=== PATIENT | male | born 1955 | race Native Hawaiian/Other Pacific Islander ===

== ENCOUNTER → 2020-10-22 09:36 | Outpatient (CLI) | payer MEDICARE, OTHER, SELFPAY ==
[2020-10-22 11:18] LABS: COVID19 -Nasal RAPID Negative (Negative)
== END ==
PROVIDERS: Family Provider Family Medicine; PCP Family Medicine; Visit Provider Surgery
DX: Z20.822 Contact with and (suspected) exposure to COVID-19 (principal)
CPT/HCPCS: 87635; C9803

== ENCOUNTER 2020-10-23 08:51 | Day surgery (SDC) | payer MEDICARE, OTHER, SELFPAY ==
--- NOTE | 2020-10-23 | PATH_ITS ---
[facility] Accession Number: [id number] . 01 Material submitted: . colon - 110 CM COLON POLYP . 01 Clinical history: . SDC . 02 Diagnosis: 110 cm Colon Polyp: Portion of tubular adenoma x 1. Superficial portions of colorectal mucosa x 3 with patchy hyperplastic mucosal change. MRV 10/26/2020 1031 Local . 02 Electronically signed: . Christina Lubin MD, Pathologist NPI- [id number] . 01 Gross description: . The specimen is received in formalin, labeled 110 cm colon polyp and consists of four fabian-pink fragments of soft tissue measuring 0.7 x 0.6 x 0.2 cm in aggregate. The specimen is entirely submitted in cassette A1. ([id number]) /MRV 10/24/2020 1147 Local . 02 Pathologist provided ICD-10: K63.5, Z12.11, Z86.010 . 02 CPT . 797611 Performed at: 01 [facility] [address] [place], [place], [place] [id number] MD Anup Melendez MD Phone: [phone] Performed at: 02 [facility] [address] [place], [place] [id number] MD Regine Edwards MD Phone: [phone]
[2020-10-23 09:26] VITALS: BP 135/86; PULSE 75; RESP 20; TEMP 36.9; O2SAT 98; BMI 36.3
[2020-10-23] MEDS: SODIUM CHLORIDE 0.9% 1,000 ML 200 ML IV (09:46)
--- NOTE | 2020-10-23 10:13 | PM.HP.1 ---
History of Present Illness History of Present Illness Date Patient Seen: 10/23/20 Time Patient Seen: 10:13 Chief complaint: SD Narrative: This is a 64-year-old man with history of polyps found on a colonoscopy 5 years ago. He denies any new symptoms of melena, hematochezia, unexplained abdominal pain, unexplained weight loss. He is here for surveillance colonoscopy. He has had radiation for prostate cancer. He reports some symptoms of anal leakage, and hemorrhoid. He reports some low-grade constipation and has to sit on the toilet for more than 5 minutes to have a bowel movement. He does not use a fiber supplement, or any barrier cream. ROS Thirteen system review is otherwise negative other than as mentioned below and in HPI. PE: GENERAL: Well groomed and cooperative. Appears stated age. Answers questions promptly and appropriately. Vital signs noted. HENT: Normocephalic, atraumatic. Hearing intact. EYES: Conjunctiva pink, sclera white, no periorbital swelling. CARDIOVASCULAR: Regular rate. No pedal edema. RESPIRATORY: Non-tachypneic, breathing comfortably on room air. GASTROINTESTINAL: Abdomen soft and non-distended GENITALURINARY: No flank tenderness. MUSCULOSKELETAL: Equal tone and mass bilaterally. SKIN: Warm, dry, soft, appropriate color for ethnicity. No other lesions, rashes, or wounds. NEURO: Alert and Oriented X 3. No gross sensory deficits, or cognitive issues. PSYCH: Appropriate affect and mood. Patient History Family & Social History Social History: household members spouse Tobacco & Substance use: Smoking Status Never smoker alcohol intake current alcohol intake frequency 3 or more drinks per day Substance Use Type does not use Meds Home Medications and Allergies Home Medications Medication Instructions Recorded Confirmed Type amlodipine-benazepril [Lotrel] 1 cap PO QDAY #0 11/03/17 10/23/20 History aspirin 81 mg PO QDAY #0 11/03/17 10/23/20 History hydrochlorothiazide 12.5 mg PO QDAY #0 11/03/17 10/23/20 History simvastatin 40 mg PO QDAY #0 11/03/17 10/23/20 History sodium,potassium,mag sulfates 17.5 177 ml PO DAILY #354 ml 10/04/20 10/23/20 Rx gram-3.13 gram-1.6 gram oral soln Allergies Allergy/AdvReac Type Severity Reaction Status Date / Time No Known Drug Allergies Allergy Verified 10/23/20 09:23 Exam Vital Signs (past 8 hours): - 10/23/20 09:26 Temperature 98.5 F Pulse Rate 75 Respiratory Rate 20 Blood Pressure 135/86 Pulse Oximetry 98 Oxygen Delivery Method Room Air Assessment & Plan Assessment and plan (1) Constipation: Qualifiers: Constipation type: unspecified constipation type Qualified Code(s): K59.00 - Constipation, unspecified Status: Acute (2) Hemorrhoids: Qualifiers: Hemorrhoid type: unspecified Qualified Code(s): K64.9 - Unspecified hemorrhoids Status: Acute (3) Personal history of colonic polyps: Status: Acute (4) Prostate cancer: Status: Acute (5) History of radiation therapy: Status: Acute Assessment & Plan narrative: Risks and benefits of screening colonoscopy and possible polypectomy were discussed with the patient including risk of bleeding, perforation, need for additional procedures, risks of anesthesia. The patient desires to proceed with the colonoscopy procedure. COVID-19 COVID-19 status: Negative Result date/Date tested (Pos, Neg/Pending): 10/22/20 Time Spent With Patient Time with patient: 15-24 minutes Quality VTE Deep Vein Thrombosis/Pulmonary Embolism Present on Admission: No
[2020-10-23] MEDS: MIDAZOLAM 5 MG/5 ML VIAL IV (10:19)
[2020-10-23] MEDS: fentaNYL 250 MCG/5 ML INJ IV (10:19)
--- NOTE | 2020-10-23 10:19 | PM.OP.ENDO ---
Operative Date/Time/Diagnoses Date of procedure: 10/23/20 Time of procedure: 10:19 Pre-op diagnosis: Personal history of colon polyps Post-op diagnosis: other (Large external hemorrhoids, single adenomatous appearing polyp at 110 cm) Procedure & Clinicians Study performed: Colonoscopy Procedural sedation performed by the endoscopist Polypectomy with Jumbo forceps Same procedure as scheduled: Yes Indications: Personal history of colon polyps Due for surveillance colonoscopy Surgeon: Sultana Matos Procedure Notes SCOAP/Timeout: Performed Procedure in detail: The patient was brought to the room and placed in left lateral decubitus position with all bony prominences padded. A time-out was performed and then the patient was given procedural sedation starting with 4 mg of Versed an100] mcg of fentanyl. Vitals were monitored throughout the procedure and remained stable. Once adequately sedated, the procedure was begun. A rectal exam was performed revealing large external hemorrhoids, otherwise normal. The colonoscope was then introduced to the rectum and advanced to the cecum in the usual fashion. [The cecum was identified by the appendiceal orifice, the mucosal tri-fold, and the ileocecal valve. The scope was then retracted while rotating side to side and examining each mucosal fold. A single polyp with transit 110 cm in the colon, and removed with Jumbo forceps.] At the conclusion of the procedure retroflexion was performed and [small grade 1-2 internal hemorrhoids without stigmata of bleeding were seen. The scope was then withdrawn from the rectum the procedure was concluded. The patient tolerated the procedure well and was transferred to the PACU in stable condition. Scope withdrawal time: 10 Findings: polyp and other findings (Large external hemorrhoid) Specimen(s): other (Single adenomatous polyp) Complications: none Impression: Large external hemorrhoids, single benign-appearing polyp Post-procedure Recommendations: Other recommendation (Colonoscopy in 5-10 years depending on pathology results, will contact patient with biopsy results) Plan for aftercare: Follow-up as needed for help with hemorrhoid symptoms, anal leakage, constipation Follow up: as needed Disposition: PACU
[2020-10-23 10:42] VITALS: BP 124/80; PULSE 73; RESP 11; TEMP 36.4; O2SAT 95
[2020-10-23 10:47] VITALS: BP 120/68; PULSE 71; RESP 11; O2SAT 94
[2020-10-23 10:52] VITALS: BP 122/70; PULSE 69; RESP 11; O2SAT 94
[2020-10-23 11:03] VITALS: BP 115/58; PULSE 67; RESP 17; TEMP 36.4; O2SAT 95
[2020-10-23 11:20] VITALS: BP 121/71; PULSE 80; RESP 16; TEMP 37.1; O2SAT 99
--- NOTE | 2020-10-23 14:51 | SUR.PHASEII ---
Stable phase 2, left when ready, ride called left unit in stable condition, belly soft and no pain or nausea.
== END 2020-10-23 11:30 | disposition home or self-care (01) ==
PROVIDERS: Family Provider Family Medicine; PCP Physician Assistant Medical; Referring Provider Physician Assistant Medical; Visit Provider Surgery
PROC: 0DJD8ZZ Inspection of Lower Intestinal Tract, Via Natural or Artificial Opening Endoscopic (ICD-10-PCS; CPT 45378; principal; 2020-10-23 10:00)
DX: Z12.11 Encounter for screening for malignant neoplasm of colon (principal); Z86.010 Personal history of colon polyps; K64.0 First degree hemorrhoids; K64.4 Residual hemorrhoidal skin tags; D12.6 Benign neoplasm of colon, unspecified
CPT/HCPCS: 45380; J2250; J3010

== ENCOUNTER 2021-09-02 07:30 | Outpatient (RCR) | payer MEDICARE, OTHER, SELFPAY ==
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
--- NOTE | 2021-06-12 15:53 | PT.OPPOC ---
Physical, Occupational & Speech Therapy At [facility] Current Diagnoses Pain in right knee (06/12/21) Visit Care Team Role Provider Type Yesica Winslow PA-C Attending Provider Non-Staff Family Provider Primary Care Provider Referring Provider Specialty: Medical Address: [facility] [address], [place], [address] Email: Plan Of Care PT-OP-T Assessment and Plan Start: 06/11/21 15:41 Freq: Status: Active Protocol: Document 06/12/21 10:30 MB (Rec: 06/12/21 15:52 MB [id number]) Physical Therapy Assessment Rehab Potential Rehabilitation Potential Fair Evaluation Complexity Number of Personal Factors/Comorbidities 1-2 Number of Body Systems Impaired 1-2 Clinical Presentation at Evaluation Evolving Impairments Impairments Activity Tolerance,Balance, Edema,Functional Mobility,Gait ,Integument,Pain,Posture,ROM, Sensation,Soft Tissue Mobility ,Strength,Transfers Other Impairments Personal factors include increased body mass and progressive degenerative disease. Body systems affected include neuromuscular and musculoskeletal. His clinical presentation is evolving. Other Concerns Fall Risk Yes Age Related Concerns Pt reports history of falling with most recent fall less than a week before evaluation- -he was on a pallet and couldn 't bend his knees enough to dismount safely Goals 4 Spiral Runner Goal (LTG) Pt will perform progressive HEP with I including ROM, flexibility, balance, strengthening and gait to decrease pain and improve mobility by 08/12/21. LTG Duration 8 weeks 3 Group Home Goal (LTG) Pt will gait train at least 1400 feet in 6 minutes without AD to improve community ambulation by 08/12/21. LTG Duration 8 weeks 2 Spiral Runner Goal (LTG) Pt will perform at least 11 reps of sit to dry wall installer 30 sec without UE support to improve functional range of motion and transfers by 08/12/21. LTG Duration 8 weeks 1 Impairment LEF score reflects more than 41% impairment Group Home Goal (LTG) Pt will present with an improved LEF score to reflect no more than 30% impairment to reflect improved functional mobility by 08/12/21. LTG Duration 8 weeks Assessment Summary Assessment Pt is a 65 y/o male presenting with increased body habitus, reports of degenerative OA in B knees and weak ankles, recent falling d/t limited knee flexion and LE weakness. He will benefit from PT to improve range, strength, balance and gait. Pt states that he has started on a diet and is motivated to improve his health and orthopedic pain . Functional prognosis is guarded to fair. He will likely need an orthopedic consult. He is agreeable to try aquatic PT this PT course in addition to treatment in the clinic. Physical Therapy Plan Frequency and Duration Frequency of Treatment 2x/Week Duration of Treatment 8 weeks Plan of Care Start Date 06/12/21 Plan of Care End Date 08/12/21 Therapeutic Interventions Therapeutic Interventions Aquatic Therapy,Balance Training,Canalithic Repositioning,Gait Training, Home Exercise Program,Joint Mobilizations,Manual Therapy, Neuromuscular Re-education, Patient/Caregiver Education, Self-Care/Home Management,Soft Tissue Mobilization,Taping, Therapeutic Activities, Therapeutic Exercises Modalities Cold Pack/Ice Massage,Hot Packs Next Visit Focus/Plan Next Note Type Treatment Note Next Visit Plan Initiate recumbent stepper or upright bike, initiate flexibility exercises Plan of Care Dates Plan of Care Start Date 06/12/21 Plan of Care End Date 08/12/21 Electronically Signed by: Hilda Ross, PT 06/12/21 2805 Please Sign and Return: I have reviewed this Plan of Care and certify that the skilled therapy services above are required to meet the patient?s needs. Physician Signature Date Printed Name and Credentials Clinical Instructor Signature Printed Name and Credentials
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
--- NOTE | 2021-07-16 13:42 | PT.OPPOC ---
Physical, Occupational & Speech Therapy At [facility] Current Diagnoses Pain in right knee (07/16/21) Visit Care Team Role Provider Type Yesica Winslow PA-C Attending Provider Non-Staff Family Provider Primary Care Provider Referring Provider Specialty: Medical Address: [facility] [address], [place], [address] Email: Plan Of Care PT-OP-T Assessment and Plan Start: 06/11/21 15:41 Freq: Status: Active Protocol: Document 07/16/21 12:55 MB (Rec: 07/16/21 13:40 MB [id number]) Physical Therapy Assessment Rehab Potential Rehabilitation Potential Fair Evaluation Complexity Number of Personal Factors/Comorbidities 1-2 Number of Body Systems Impaired 1-2 Clinical Presentation at Evaluation Evolving Impairments Impairments Activity Tolerance,Balance, Edema,Functional Mobility,Gait ,Integument,Pain,Posture,ROM, Sensation,Soft Tissue Mobility ,Strength,Transfers Other Impairments Personal factors include increased body mass and progressive degenerative disease. Body systems affected include neuromuscular and musculoskeletal. His clinical presentation is evolving. Other Concerns Fall Risk Yes Age Related Concerns Pt reports history of falling with most recent fall less than a week before evaluation- -he was on a pallet and couldn 't bend his knees enough to dismount safely Goals 4 Environmental Health Physician Goal (LTG) Pt will perform progressive HEP with I including ROM, flexibility, balance, strengthening and gait to decrease pain and improve mobility by 09/09/21. 07/16/21: Pt is doing exercises 3x/wk. Re-ed pt in importance of performing exercises everyday--he does not have to perform all exercises everyday , but he does need to perform some exercises everyday LTG Duration 7 weeks 3 Environmental Health Physician Goal (LTG) Pt will gait train at least 1600 feet in 6 minutes without AD to improve community ambulation by 09/09/21. 07/16/21: Pt reports right knee discomfort in patellar tendon area after 3.5 minutes of gait at about 950 feet. He gait trains 1536 feet in 6 minutes and does start to favor the right LE with increased gait distance. He has wide URVASHI, increased WB lateral feet and some knee varus LTG Duration 7 weeks 2 Long-Term Goal (LTG) Pt will perform at least 13 reps of sit to health claims examiner 30 sec without UE support to improve functional range of motion and transfers by 09/09/21. 07/16/21: Pt performs 11.5 reps of sit to health claims examiner 30 sec without UE support and he denies pain LTG Duration 7 weeks 1 Impairment LEF score reflects more than 41% impairment Environmental Health Physician Goal (LTG) Pt will present with an improved LEF score to reflect no more than 30% impairment to reflect improved functional mobility by 09/09/21. 07/16/21: LEF score reflects 37 .5% impairment, which is some improvement since the evaluation LTG Duration 7 weeks Assessment Summary Assessment Pt has progressed towards all PT goals since starting PT. These include sit to stands, 6MWT, LEF score and performance of HEP. He does state that he has only been performing his exercises 3x/wk and PT ed that he will need to increase frequency of performance and he is agreeable to this. He has started aquatic PT. He will benefit from ongoing PT to improve strength, gait, balance and function. Barriers to PT include decreased exercise performance and likely degenerative changes in his knees. Physical Therapy Plan Frequency and Duration Frequency of Treatment 2x/Week Duration of Treatment 7 weeks Plan of Care Start Date 07/16/21 Plan of Care End Date 09/09/21 Therapeutic Interventions Therapeutic Interventions Aquatic Therapy,Balance Training,Canalithic Repositioning,Gait Training, Home Exercise Program,Joint Mobilizations,Manual Therapy, Neuromuscular Re-education, Patient/Caregiver Education, Self-Care/Home Management,Soft Tissue Mobilization,Taping, Therapeutic Activities, Therapeutic Exercises Modalities Cold Pack/Ice Massage,Hot Packs Next Visit Focus/Plan Next Note Type Treatment Note Next Visit Plan Ankle DF and eversion with band in sitting, LAQ with band in sitting Plan of Care Dates Plan of Care Start Date 07/16/21 Plan of Care End Date 09/09/21 Electronically Signed by: Hilda Ross, PT 07/16/21 [id number] Please Sign and Return: I have reviewed this Plan of Care and certify that the skilled therapy services above are required to meet the patient?s needs. Physician Signature Date Printed Name and Credentials Clinical Instructor Signature Printed Name and Credentials
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
--- NOTE | 2021-07-25 09:57 | PT.OPPOC ---
Physical, Occupational & Speech Therapy At [facility] Current Diagnoses Pain in right knee (07/25/21) Visit Care Team Role Provider Type Yesica Winslow PA-C Attending Provider Non-Staff Family Provider Primary Care Provider Referring Provider Specialty: Medical Address: [facility] [address], [place], [address] Email: Plan Of Care PT-OP-T Assessment and Plan Start: 06/11/21 15:41 Freq: Status: Active Protocol: Document 07/25/21 09:00 MB (Rec: 07/25/21 09:41 MB [id number]) Physical Therapy Assessment Rehab Potential Rehabilitation Potential Fair Evaluation Complexity Number of Personal Factors/Comorbidities 1-2 Number of Body Systems Impaired 1-2 Clinical Presentation at Evaluation Evolving Impairments Impairments Activity Tolerance,Balance, Edema,Functional Mobility,Gait ,Integument,Pain,Posture,ROM, Sensation,Soft Tissue Mobility ,Strength,Transfers Other Impairments Personal factors include increased body mass and progressive degenerative disease. Body systems affected include neuromuscular and musculoskeletal. His clinical presentation is evolving. Other Concerns Fall Risk Yes Age Related Concerns Pt reports history of falling with most recent fall less than a week before evaluation- -he was on a pallet and couldn 't bend his knees enough to dismount safely Goals 4 Computer Game Designer Goal (LTG) Pt will perform progressive HEP with I including ROM, flexibility, balance, strengthening and gait to decrease pain and improve mobility by 09/02/21. 07/25/21: Pt is performing exercises on non-therapy days as instructed. LTG Duration 7 weeks 3 Residential Goal (LTG) Pt will gait train at least 1600 feet in 6 minutes without AD to improve community ambulation by 09/02/21. 07/16/21: Pt reports right knee discomfort in patellar tendon area after 3.5 minutes of gait at about 950 feet. He gait trains 1536 feet in 6 minutes and does start to favor the right LE with increased gait distance. He has wide URVASHI, increased WB lateral feet and some knee varus LTG Duration 7 weeks 2 Computer Game Designer Goal (LTG) Pt will perform at least 13 reps of sit to pipe stress engineer 30 sec without UE support to improve functional range of motion and transfers by 09/02/21. 07/16/21: Pt performs 11.5 reps of sit to pipe stress engineer 30 sec without UE support and he denies pain LTG Duration 7 weeks 1 Impairment LEF score reflects more than 41% impairment Residential Goal (LTG) Pt will present with an improved LEF score to reflect no more than 30% impairment to reflect improved functional mobility by 09/02/21. 07/16/21: LEF score reflects 37 .5% impairment, which is some improvement since the evaluation LTG Duration 7 weeks Assessment Summary Assessment Pt has maximized land activities and will con't to benefit from aquatic PT. Will cancel further clinic treatments except for 09/02/21, when PT will do d/c. Physical Therapy Plan Frequency and Duration Frequency of Treatment 1x/Week Duration of Treatment 7 weeks Plan of Care Start Date 07/25/21 Plan of Care End Date 09/04/21 Therapeutic Interventions Therapeutic Interventions Aquatic Therapy,Balance Training,Canalithic Repositioning,Gait Training, Home Exercise Program,Joint Mobilizations,Manual Therapy, Neuromuscular Re-education, Patient/Caregiver Education, Self-Care/Home Management,Soft Tissue Mobilization,Taping, Therapeutic Activities, Therapeutic Exercises Modalities Cold Pack/Ice Massage,Hot Packs Next Visit Focus/Plan Next Note Type Treatment Note Next Visit Plan AQUATIC: Progress squats to shallower section and add lunge walking Plan of Care Plan of Care Start Date 07/25/21 Plan of Care End Date 09/04/21 Electronically Signed by: Hilda Ross, PT 07/25/21 0957 Please Sign and Return: I have reviewed this Plan of Care and certify that the skilled therapy services above are required to meet the patient?s needs. Physician Signature Date Printed Name and Credentials Clinical Instructor Signature Printed Name and Credentials
--- NOTE | 2021-07-25 09:57 | PT.OPPOC ---
Physical, Occupational & Speech Therapy At [facility] Current Diagnoses Pain in right knee (07/25/21) Visit Care Team Role Provider Type Yesica Winslow PA-C Attending Provider Non-Staff Family Provider Primary Care Provider Referring Provider Specialty: Medical Address: [facility] [address], [place], [address] Email: Plan Of Care PT-OP-T Assessment and Plan Start: 06/11/21 15:41 Freq: Status: Active Protocol: Document 07/25/21 09:00 MB (Rec: 07/25/21 09:41 MB [id number]) Physical Therapy Assessment Rehab Potential Rehabilitation Potential Fair Evaluation Complexity Number of Personal Factors/Comorbidities 1-2 Number of Body Systems Impaired 1-2 Clinical Presentation at Evaluation Evolving Impairments Impairments Activity Tolerance,Balance, Edema,Functional Mobility,Gait ,Integument,Pain,Posture,ROM, Sensation,Soft Tissue Mobility ,Strength,Transfers Other Impairments Personal factors include increased body mass and progressive degenerative disease. Body systems affected include neuromuscular and musculoskeletal. His clinical presentation is evolving. Other Concerns Fall Risk Yes Age Related Concerns Pt reports history of falling with most recent fall less than a week before evaluation- -he was on a pallet and couldn 't bend his knees enough to dismount safely Goals 4 Energy Sales Consultant Goal (LTG) Pt will perform progressive HEP with I including ROM, flexibility, balance, strengthening and gait to decrease pain and improve mobility by 09/02/21. 07/25/21: Pt is performing exercises on non-therapy days as instructed. LTG Duration 7 weeks 3 Fpc Goal (LTG) Pt will gait train at least 1600 feet in 6 minutes without AD to improve community ambulation by 09/02/21. 07/16/21: Pt reports right knee discomfort in patellar tendon area after 3.5 minutes of gait at about 950 feet. He gait trains 1536 feet in 6 minutes and does start to favor the right LE with increased gait distance. He has wide URVASHI, increased WB lateral feet and some knee varus LTG Duration 7 weeks 2 Energy Sales Consultant Goal (LTG) Pt will perform at least 13 reps of sit to roofing technician 30 sec without UE support to improve functional range of motion and transfers by 09/02/21. 07/16/21: Pt performs 11.5 reps of sit to roofing technician 30 sec without UE support and he denies pain LTG Duration 7 weeks 1 Impairment LEF score reflects more than 41% impairment Fpc Goal (LTG) Pt will present with an improved LEF score to reflect no more than 30% impairment to reflect improved functional mobility by 09/02/21. 07/16/21: LEF score reflects 37 .5% impairment, which is some improvement since the evaluation LTG Duration 7 weeks Assessment Summary Assessment Pt has maximized land activities and will con't to benefit from aquatic PT. Will cancel further clinic treatments except for 09/02/21, when PT will do d/c. Physical Therapy Plan Frequency and Duration Frequency of Treatment 1x/Week Duration of Treatment 7 weeks Plan of Care Start Date 07/25/21 Plan of Care End Date 09/04/21 Therapeutic Interventions Therapeutic Interventions Aquatic Therapy,Balance Training,Canalithic Repositioning,Gait Training, Home Exercise Program,Joint Mobilizations,Manual Therapy, Neuromuscular Re-education, Patient/Caregiver Education, Self-Care/Home Management,Soft Tissue Mobilization,Taping, Therapeutic Activities, Therapeutic Exercises Modalities Cold Pack/Ice Massage,Hot Packs Next Visit Focus/Plan Next Note Type Treatment Note Next Visit Plan AQUATIC: Progress squats to shallower section and add lunge walking Plan of Care Plan of Care Start Date 07/25/21 Plan of Care End Date 09/04/21 Electronically Signed by: Hilda Ross, PT 07/25/21 0957 Please Sign and Return: I have reviewed this Plan of Care and certify that the skilled therapy services above are required to meet the patient?s needs. Physician Signature Date Printed Name and Credentials Clinical Instructor Signature Printed Name and Credentials
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
== END 2021-09-10 08:26 | disposition home or self-care (01) ==
LOC: PHYS 07:30
PROVIDERS: Family Provider Physician Assistant Medical; PCP Physician Assistant Medical; Referring Provider Physician Assistant Medical; Visit Provider Physician Assistant Medical
DX: M25.561 Pain in right knee (principal)
CPT/HCPCS: 97110; 97113; 97116; 97140; 97162; 97535

== ENCOUNTER → 2024-01-26 10:19 | Outpatient (CLI) | payer MEDICARE, OTHER, SELFPAY ==
--- NOTE | 2024-01-26 10:26 | EKG_ITS ---
[address] [address] Test Date: 2024-01-26 Pat Name: Mark Whitten Department: Room: Gender: Male Cnc Service Technician: MADELEINE : 1955 Requested By: Order Number: [id number] Reading MD: Stevie Kat Measurements Intervals [place] Rate: 71 P: 56 GA: 160 QRS: -27 QRSD: 80 T: 26 QT: 356 QTc: 386 Interpretive Statements Normal sinus rhythm Minimal voltage criteria for LVH, may be normal variant ( R in aVL ) Electronically Signed On 01-27-2024 18:37:39 PDT by Stevie Kat
[2024-01-26 10:57] LABS: Add Manual Diff / Slide Review NO; Basophils Absolute Auto 100 /uL (0-100); Basophils Percent Auto 1.4 % (0-2); Eosinophils Absolute Auto 200 /uL (0-450); Eosinophils Percent Auto 4.5 % (2-4); Hematocrit 44.3 % (41-53); Hemoglobin 15.1 g/dL (13.5-17.5); Lymphocytes Absolute Auto 1700 /uL (1100-4500); Lymphocytes Percent Auto 37.9 % (25-40); Mean Corpuscular Hemoglobin 29.7 PG (26-34); Mean Corpuscular Volume 87.5 fL (80-100); Monocytes Absolute Auto 500 /uL (0-900); Monocytes Percent Auto 10.5 % (3-14); Neutrophils Absolute Auto 2100 /uL (1500-7000); Neutrophils Percent Auto 45.7 % (50-75); Platelet Count 224 X10^3/uL (150-400); Red Blood Cell Count 5.07 X10^6/uL (4.5-5.9); Red Cell Distribution Width 13.7 % (11.6-14.8); White Blood Cell Count 4.5 X10^3/uL (4.5-11.0)
[2024-01-26 11:14] LABS: Hemoglobin A1C% w Est Avg Glu 6.2 % (4.0-6.0)
[2024-01-26 11:36] LABS: BUN Creatinine Ratio 26.2 (6-22); Blood Urea Nitrogen 22 mg/dL (9-20); Calcium 9.7 mg/dL (8.4-10.2); Carbon Dioxide 28 mmol/L (22-32); Chloride 105 mmol/L (98-107); Estimated Glomerular Filt Rate > 60 mL/min (>60); Glucose 130 mg/dL (80-110); HEMOLYSIS < 15 (0-50); Potassium 4.1 mmol/L (3.4-5.1); Sodium 139 mmol/L (137-145)
[2024-01-26 15:23] LABS: Appearance Urine UA CLEAR; Bilirubin Urine UA NEGATIVE (NEGATIVE); Color Urine UA YELLOW; Glucose Urine UA NEGATIVE (Negative); Ketones Urine UA NEGATIVE (NEGATIVE); Leukocyte Esterase Urine UA NEGATIVE (NEGATIVE); Nitrite Urine UA NEGATIVE (Negative); Occult Blood Urine UA NEGATIVE (Negative); Protein Urine UA NEGATIVE (Negative); Urobilinogen Urine UA 0.2 E.U./dL (0.2)
[2024-01-26 15:31] LABS: Bacteria Urine Occasional (0-1); Culture Indicated Urine Cult Not Indicated; RBC Urine 0-1/HPF (0-5/HPF); Squamous Epithelial Cell Urine 0-1 /HPF (0-5/HPF); Urine Volume 10mL (spun); WBC Urine 0-1/HPF (0-5/HPF)
== END ==
LOC: RESP 10:21
PROVIDERS: Family Provider Physician Assistant Medical; PCP Physician Assistant Medical; Referring Provider Orthopaedic Surgery; Visit Provider Orthopaedic Surgery
DX: Z01.818 Encounter for other preprocedural examination (principal); R73.9 Hyperglycemia, unspecified; Z01.812 Encounter for preprocedural laboratory examination; N39.0 Urinary tract infection, site not specified
CPT/HCPCS: 36415; 80048; 81001; 83036; 85025; 93005

== ENCOUNTER → 2024-05-26 16:57 | Outpatient (CLI) | payer MEDICARE, OTHER, SELFPAY ==
[2024-05-26 17:58] LABS: Add Manual Diff / Slide Review NO; Basophils Absolute Auto 100 /uL (0-100); Basophils Percent Auto 1.1 % (0-2); Eosinophils Absolute Auto 100 /uL (0-450); Eosinophils Percent Auto 2.7 % (2-4); Hematocrit 43.1 % (41-53); Hemoglobin 14.4 g/dL (13.5-17.5); Lymphocytes Absolute Auto 2000 /uL (1100-4500); Lymphocytes Percent Auto 40.5 % (25-40); Mean Corpuscular HGB Conc 33.4 % (30-36); Mean Corpuscular Hemoglobin 29.7 PG (26-34); Mean Corpuscular Volume 88.9 fL (80-100); Monocytes Absolute Auto 500 /uL (0-900); Monocytes Percent Auto 9.3 % (3-14); Neutrophils Absolute Auto 2300 /uL (1500-7000); Neutrophils Percent Auto 46.4 % (50-75); Platelet Count 271 X10^3/uL (150-400); Red Blood Cell Count 4.85 X10^6/uL (4.5-5.9)
[2024-05-26 18:22] LABS: BUN Creatinine Ratio 28.6 (6-22); Blood Urea Nitrogen 26 mg/dL (9-20); Calcium 9.1 mg/dL (8.4-10.2); Carbon Dioxide 27 mmol/L (22-32); Chloride 102 mmol/L (98-107); Estimated Glomerular Filt Rate > 60 mL/min (>60); Glucose 125 mg/dL (80-110); HEMOLYSIS 26 (0-50); Potassium 3.9 mmol/L (3.4-5.1); Sodium 139 mmol/L (137-145)
== END ==
PROVIDERS: Family Provider Physician Assistant Medical; PCP Physician Assistant Medical; Referring Provider Orthopaedic Surgery; Visit Provider Orthopaedic Surgery
DX: Z01.812 Encounter for preprocedural laboratory examination (principal)
CPT/HCPCS: 36415; 80048; 85025